=== PATIENT | female | born 1950 | race Caucasian/White ===

== ENCOUNTER 2024-02-09 11:10 | Emergency (ER) | payer MEDICARE, OTHER, SELFPAY ==
[2024-02-09 11:14] VITALS: BP 161/75; PULSE 76; TEMP 36.8; O2SAT 97; BMI 25.4
--- NOTE | 2024-02-09 11:25 | XR_ITS ---
The [address] [address] Patient Name: BIANCA TRAVIS MRN: [id number] date: 1950 Sex: F Assigned Patient Location: ER Current Patient Location: ER Accession/Order Number: [id number] Exam Date: 02/09/2024 11:55 Report Date: 02/09/2024 12:36 At the request of: OC MENDES Procedure: XR ribs RT min 3V w CXR1V EXAMINATION: XR ribs RT min 3V w CXR1V HISTORY: Injured a week ago COMPARISON: No relevant comparison available. FINDINGS: LUNGS: No significant pulmonary parenchymal abnormalities. PLEURA: No pneumothorax, effusion, or pleural thickening. MEDIASTINUM: No visible mass or adenopathy. CARDIAC: No cardiomegaly or cardiac silhouette abnormality. RIBS: Slight cortical irregularity involving the anterior right 5th rib. OTHER: Negative. XR/XR ribs RT min 3V w CXR1V IMPRESSION: 1. Suspect nondisplaced anterior right 5th rib fracture. 2. No acute cardiopulmonary process. Electronically authenticated by: CARIG HERNANDEZ Date: 02/09/2024 12:36
--- NOTE | 2024-02-09 11:25 | ED_ITS ---
HPI HPI - General Adult General Chief complaint: Extremity Injury, Upper Stated complaint: RIB PAIN Time Seen by Provider: 02/09/24 11:11 Source: patient Mode of arrival: walk-in Limitations: no limitations History of Present Illness HPI narrative: 73-year-old female presents for rib pain. She was going down a water slide with her grandson a week ago and she flipped over and came down on that side. It has been hurting since. The pain is moderate and sharp. No other injury was sustained. Related Data Home Medications ?Medication ?Instructions ?Recorded ?Confirmed citalopram 40 mg tablet mg 02/09/24 ibuprofen 800 mg tablet mg 02/09/24 Previous Rx's ?Medication ?Instructions ?Recorded acetaminophen 300 mg-codeine 30 mg 1 tab PO Q6H PRN pain 5 days #20 02/09/24 tablet tabs Allergies Allergy/AdvReac Type Severity Reaction Status Date / Time No Known Drug Allergies Allergy Verified 02/09/24 11:13 Opioid HPI Opioid Management Most Recent Opioid Data: Last Pain Scale 5 02/09/24 11:21 Last Pain Assessment 02/09/24 11:21 Review of Systems ROS Narrative A ten point review of systems is negative except as noted above. Exam Narrative Exam Narrative: Nurses note and vital signs reviewed and patient is not hypoxic. General: The patient appears well and in no apparent distress. Patient is resting comfortably on cart. Skin: Warm, dry, no pallor noted. There is no rash noted. Head: Normocephalic, atraumatic Eye: Normal conjunctiva, no drainage Ears, Nose, Mouth, and Throat: oral mucosa is moist. Nares patent. Cardiovascular: Regular Rate and Rhythm; she has some palpable tenderness to the right upper lateral rib area, just lateral to her breast. There is no crepitus or break in the skin. No bruising noted. Respiratory: Patient is in no distress, no accessory muscle use, lungs are clear to auscultation, no wheezing, rales or rhonchi Back: non-tender GI: Soft and nontender Musculoskeletal: The patient has no evidence of calf tenderness, no pitting edema, symmetrical pulses noted bilaterally Neurological: Awake and alert Psychiatric: Cooperative Constitutional Vital Signs, click to edit/add: Last Vital Signs Temp 98.2 F 02/09/24 11:14 Pulse 76 07/01/24 11:14 Resp 16 02/09/24 11:14 BP 161/75 H 02/09/24 11:14 Pulse Ox 97 02/09/24 11:14 O2 Del Method Room Air 02/09/24 11:14 Course Vital Signs Vital signs: Vital Signs Temperature 98.2 F 02/09/24 11:14 Pulse Rate 76 02/09/24 11:14 Respiratory Rate 16 02/09/24 11:14 Blood Pressure 161/75 H 02/09/24 11:14 Pulse Oximetry 97 02/09/24 11:14 Oxygen Delivery Method Room Air 02/09/24 11:14 Temperature 98.2 F 02/09/24 11:14 Pulse Rate 76 02/09/24 11:14 Respiratory Rate 16 02/09/24 11:14 Blood Pressure 161/75 H 02/09/24 11:14 Pulse Oximetry 97 02/09/24 11:14 Oxygen Delivery Method Room Air 02/09/24 11:14 Medical Decision Making MDM Narrative Medical decision making narrative: A single rib fracture is found on x-rays per radiologist. No pneumothorax. She will be treated symptomatically and was given OPEP device. Treatment diagnosis and follow-up were discussed with the patient. The x-ray finding that the radiologist has does correlate with her symptomatic area. Differential Diagnosis Differential Diagnosis: Rib fracture, pneumothorax, chest wall contusion Imaging Data Rib x-rays: Radiologist's impression: ITS Impressions Ribs X-Ray 02/09/24 11:25 IMPRESSION: 1. Suspect nondisplaced anterior right 5th rib fracture. 2. No acute cardiopulmonary process. Electronically authenticated by: CRAIG HERNANDEZ Date: 02/09/2024 12:36 Discharge Plan Discharge Stand Alone Forms: Portal Instructions Chief Complaint: Extremity Injury, Upper Clinical Impression: Rib fracture Patient Disposition: Home, Self-Care Time of Disposition Decision: 12:48 Condition: Good Mode of Transportation: Private Vehicle Prescriptions / Home Meds: New acetaminophen-codeine 300-30 mg tablet 1 tab PO Q6H PRN (Reason: pain) 5 Days Qty: 20 0RF No Action citalopram 40 mg tablet ibuprofen 800 mg tablet Print Language: Lithuanian Instructions: Rib Fracture (ED) Referrals: DANY HERNANDEZ [Primary Care Provider] - 1 week
[2024-02-09 12:56] VITALS: BP 142/92; PULSE 82; O2SAT 96
== END 2024-02-09 12:57 | disposition home or self-care (01) ==
PROVIDERS: Emergency Provider Emergency Medicine; PCP Family Medicine
DX: S22.31XA Fracture of one rib, right side, initial encounter for closed fracture (principal); W22.8XXA Striking against or struck by other objects, initial encounter
CPT/HCPCS: 71101; 94667; 99283